=== PATIENT | female | born 1960 | race Caucasian/White ===

== ENCOUNTER 2018-05-03 07:57 | Outpatient (CLI) | payer BC ==
--- NOTE | 2018-05-05 01:23 | XRAY Report ---
Reason: OSTEOARTHRITIS,KNEE Procedure Date: 05/03/2018 Accession Number: [id number] / [id number] Procedure: XR - Knee 2 View BILAT CPT Code: FULL RESULT: EXAM: BILATERAL KNEE RADIOGRAPHY EXAM DATE: 05/03/2018 08:03 AM. CLINICAL HISTORY: OSTEOARTHRITIS,KNEE. COMPARISON: XR KNEE 3 VIEW 03/11/2010 9:44 AM. TECHNIQUE: 2 views each knee. FINDINGS: Right: Bones: Normal. No fractures or bone lesions. Joints: Moderate osteoarthritis, with joint space narrowing and marginal osteophytes. No effusion. Soft Tissues: Normal. No soft tissue swelling. Left: Bones: Normal. No fractures or bone lesions. Joints: Moderate osteoarthritis, with joint space narrowing and marginal osteophytes. Soft Tissues: Normal. No soft tissue swelling. IMPRESSION: Moderate bilateral knee osteoarthritis. Right: Kellgren Florian Grade 3. Left: Kellgren Florian Grade 3. Kellgren and Florian classification of osteoarthritis: Grade 0: no radiographic features of osteoarthritis are present Grade 1: doubtful joint space narrowing (JSN) and possible osteophytic lipping Grade 2: definite osteophytes and possible JSN on anteroposterior weight-bearing radiograph Grade 3: multiple osteophytes, definite JSN, sclerosis, possible bony deformity Grade 4: large osteophytes, marked JSN, severe sclerosis and definite bony deformity RADIA
== END 2018-05-03 07:58 | disposition home or self-care (01) ==
LOC: DI 07:57
PROVIDERS: ATTEND Nurse Practitioner
DX: M17.0 Bilateral primary osteoarthritis of knee (principal)
CPT/HCPCS: 73565

== ENCOUNTER 2018-05-20 06:59 | Outpatient (CLI) | payer BC ==
[2018-05-20 07:19] LABS: BASOPHILS % (AUTO) 0.7 %; EOSINOPHILS # (AUTO) 0.1 10^3/uL (0.0-0.7); EOSINOPHILS % (AUTO) 2.1 %; HGB - HEMOGLOBIN 13.9 g/dL (12.0-16.0); LYMPHOCYTES # (AUTO) 2.6 10^3/uL (1.5-3.5); LYMPHOCYTES % (AUTO) 39.2 %; MEAN CORPUSCULAR HEMOGLOBIN 29.3 pg (27.0-31.0); MEAN CORPUSCULAR HGB CONC 33.6 g/dL (32.0-36.0); MEAN CORPUSCULAR VOLUME 87.3 fL (81.0-99.0); MEAN PLATELET VOLUME 8.3 fL (7.9-10.8); MONOCYTES # (AUTO) 0.5 10^3/uL (0.0-1.0); NEUTROPHILS # (AUTO) 3.4 10^3/uL (1.5-6.6); PLT - PLATELET COUNT 208 10^3/uL (130-450); RED BLOOD COUNT 4.73 10^6/uL (4.20-5.40); RED CELL DISTRIBUTION WIDTH 13.9 % (12.0-15.0); WHITE BLOOD COUNT 6.7 x10^3/uL (4.8-10.8)
[2018-05-20 07:44] LABS: ALBUMIN 3.9 g/dL (3.2-5.5); ALBUMIN/GLOBULIN RATIO 1.1 (1.0-2.2); ALKALINE PHOSPHATASE 79 IU/L (42-121); ALT ALANINE AMINOTRANSFERASE 25 IU/L (10-60); AST ASPARTATE AMINOTRANSFERASE 20 IU/L (10-42); BILIRUBIN,TOTAL 0.8 mg/dL (0.2-1.0); BUN - BLOOD UREA NITROGEN 21 mg/dL (6-20); CALCIUM 8.8 mg/dL (8.5-10.3); CARBON DIOXIDE - CO2 24 mmol/L (21-32); CHLORIDE 105 mmol/L (101-111); CHOL/HDL RATIO 5.2 (<4.4); CHOLESTEROL 245 mg/dL; CREATININE 0.9 mg/dL (0.4-1.0); GFR - MDRD 64 (>89); GLUCOSE 156 mg/dL (70-100); HDL CHOLESTEROL 47 mg/dL; LDL CHOLESTEROL,CALCULATED 173 mg/dL; LDL/HDL RATIO 3.7 (<4.4); SODIUM 139 mmol/L (135-145); TOTAL PROTEIN 7.4 g/dL (6.7-8.2); VLDL CHOLESTEROL 25 mg/dL
[2018-05-20 08:24] LABS: HB2 TOTAL 15.2 g/dL; HEMOGLOBIN A1C 0.76 g/dL; HEMOGLOBIN A1C % 6.7 % (4.6-6.2)
== END 2018-05-20 07:00 | disposition home or self-care (01) ==
LOC: LAB 06:59
PROVIDERS: ATTEND Nurse Practitioner
DX: I10 Essential (primary) hypertension (principal); E78.5 Hyperlipidemia, unspecified; R73.01 Impaired fasting glucose
CPT/HCPCS: 36415; 80053; 80061; 83036; 83721; 84443; 85025

== ENCOUNTER 2018-06-09 13:17 | Outpatient (CLI) | payer BC | END 2018-06-09 13:18 | disposition home or self-care (01) | LOC: NS 13:17 | PROVIDERS: ATTEND Nurse Practitioner | DX: Z71.3 Dietary counseling and surveillance (principal); E11.9 Type 2 diabetes mellitus without complications; E66.9 Obesity, unspecified | CPT/HCPCS: 97802 ==

== ENCOUNTER 2018-09-01 06:35 | Outpatient (CLI) | payer BC ==
[2018-09-01 07:22] LABS: SODIUM 142 mmol/L (135-145)
[2018-09-01 07:23] LABS: ALBUMIN 3.8 g/dL (3.2-5.5); ALBUMIN/GLOBULIN RATIO 1.1 (1.0-2.2); ALKALINE PHOSPHATASE 76 IU/L (42-121); ALT ALANINE AMINOTRANSFERASE 27 IU/L (10-60); AST ASPARTATE AMINOTRANSFERASE 18 IU/L (10-42); BILIRUBIN,TOTAL 0.9 mg/dL (0.2-1.0); BUN - BLOOD UREA NITROGEN 21 mg/dL (6-20); CALCIUM 9.2 mg/dL (8.5-10.3); CARBON DIOXIDE - CO2 22 mmol/L (21-32); CHLORIDE 104 mmol/L (101-111); CHOLESTEROL 182 mg/dL; GFR - MDRD 57 (>89); GLUCOSE 163 mg/dL (70-100); TOTAL PROTEIN 7.4 g/dL (6.7-8.2); VLDL CHOLESTEROL 24 mg/dL
[2018-09-01 07:24] LABS: CHOL/HDL RATIO 3.4 (<4.4); HDL CHOLESTEROL 54 mg/dL; LDL CHOLESTEROL,CALCULATED 104 mg/dL; LDL/HDL RATIO 1.9 (<4.4)
[2018-09-01 08:04] LABS: HB2 TOTAL 14.7 g/dL; HEMOGLOBIN A1C 0.73 g/dL; HEMOGLOBIN A1C % 6.7 % (4.6-6.2)
== END 2018-09-01 06:36 | disposition home or self-care (01) ==
LOC: LAB 06:35
PROVIDERS: ATTEND Nurse Practitioner
DX: R73.01 Impaired fasting glucose (principal); I10 Essential (primary) hypertension; E78.5 Hyperlipidemia, unspecified
CPT/HCPCS: 36415; 80053; 80061; 83036; 83721

== ENCOUNTER 2018-11-25 06:51 | Outpatient (CLI) | payer BC ==
[2018-11-25 07:27] LABS: BASOPHILS % (AUTO) 0.4 %; EOSINOPHILS # (AUTO) 0.2 10^3/uL (0.0-0.7); EOSINOPHILS % (AUTO) 2.2 %; HGB - HEMOGLOBIN 12.8 g/dL (12.0-16.0); LYMPHOCYTES # (AUTO) 2.6 10^3/uL (1.5-3.5); LYMPHOCYTES % (AUTO) 37.9 %; MEAN CORPUSCULAR HEMOGLOBIN 29.1 pg (27.0-31.0); MEAN CORPUSCULAR HGB CONC 31.1 g/dL (32.0-36.0); MEAN CORPUSCULAR VOLUME 93.4 fL (81.0-99.0); MEAN PLATELET VOLUME 10.2 fL (7.9-10.8); MONOCYTES # (AUTO) 0.4 10^3/uL (0.0-1.0); MONOCYTES % (AUTO) 6.2 %; NEUTROPHILS # (AUTO) 3.6 10^3/uL (1.5-6.6); NEUTROPHILS % (AUTO) 52.9 %; PLT - PLATELET COUNT 200 10^3/uL (130-450); WHITE BLOOD COUNT 6.9 x10^3/uL (4.8-10.8)
[2018-11-25 07:37] LABS: PT - PROTHROMBIN TIME 11.2 secs (9.9-12.6)
[2018-11-25 07:59] LABS: % IRON SATURATION 15 % (20-50); ALBUMIN 3.8 g/dL (3.2-5.5); ALBUMIN/GLOBULIN RATIO 1.2 (1.0-2.2); ALKALINE PHOSPHATASE 75 IU/L (42-121); ALT ALANINE AMINOTRANSFERASE 17 IU/L (10-60); AST ASPARTATE AMINOTRANSFERASE 16 IU/L (10-42); BILIRUBIN,TOTAL 0.5 mg/dL (0.2-1.0); BUN - BLOOD UREA NITROGEN 19 mg/dL (6-20); CALCIUM 8.8 mg/dL (8.5-10.3); CARBON DIOXIDE - CO2 23 mmol/L (21-32); CHLORIDE 108 mmol/L (101-111); CHOL/HDL RATIO 3.3 (<4.4); CHOLESTEROL 161 mg/dL; CREATININE 0.8 mg/dL (0.4-1.0); GFR - MDRD 74 (>89); GLUCOSE 147 mg/dL (70-100); HDL CHOLESTEROL 49 mg/dL; IRON 48 ug/dL (28-170); LDL CHOLESTEROL,CALCULATED 94 mg/dL; LDL/HDL RATIO 1.9 (<4.4); SODIUM 143 mmol/L (135-145); TOTAL IRON BINDING CAPACITY 314 ug/dL (250-450); TOTAL PROTEIN 6.9 g/dL (6.7-8.2); TRANSFERRIN 224 mg/dL (192-382); VLDL CHOLESTEROL 18 mg/dL
[2018-11-25 08:11] LABS: HB2 TOTAL 13.7 g/dL; HEMOGLOBIN A1C 0.62 g/dL; HEMOGLOBIN A1C % 6.3 % (4.6-6.2)
[2018-11-25 08:25] LABS: THYROID STIMULATING HORMONE 3.61 uIU/mL (0.34-5.60)
[2018-11-25 08:32] LABS: FERRITIN 146.4 ng/mL (11.0-306.8)
[2018-11-25 08:36] LABS: FOLATE 14.46 ng/mL (5.90 - >24.8)
== END 2018-11-25 06:52 | disposition home or self-care (01) ==
LOC: LAB 06:51
PROVIDERS: ATTEND Surgery
DX: Z01.812 Encounter for preprocedural laboratory examination (principal); E46 Unspecified protein-calorie malnutrition; E63.9 Nutritional deficiency, unspecified
CPT/HCPCS: 36415; 80053; 80061; 81599; 82306; 82607; 82728; 82746; 83036; 83540; 83721; 84425; 84443; 84466; 84481; 85025; 85610; 85730

== ENCOUNTER 2018-11-27 15:40 | Outpatient (CLI) | payer BC ==
--- NOTE | 2018-11-28 10:46 | Mammography Report ---
Reason: SCREENING MAMMO Procedure Date: 11/27/2018 Accession Number: [id number] / [id number] Procedure: YOLANDE - Screening Mammo w/Natwon CPT Code: FULL RESULT: EXAM: Screening Mammo w/Antwon DATE: 11/27/2018 4:00 PM CLINICAL HISTORY: Screening encounter. TECHNIQUE: (B) - Bilateral CC, laterally exaggerated CC, MLO views were obtained. COMPARISON: None PARENCHYMAL PATTERN: (A) - The breast(s) demonstrate(s) scattered fibroglandular densities. FINDINGS: There are no suspicious masses, calcifications, or areas of distortion. IMPRESSION: Negative examination. BI-RADS category 1. RECOMMENDATION: (ANNUAL) - Recommend routine annual screening mammography. BI-RADS CATEGORY: (1) - Negative. STANDARD QUALIFYING STATEMENTS: 1. This examination was not reviewed with the aid of Computer-Aided Detection (CAD). 2. A negative or benign imaging report should not preclude biopsy if clinically suspicious findings are present. 3. Dense breasts may obscure an underlying neoplasm. 4. This examination was reviewed with the aid of 3D breast imaging (tomosynthesis).
== END 2018-11-27 15:41 | disposition home or self-care (01) ==
LOC: DI 15:40
DX: Z12.31 Encounter for screening mammogram for malignant neoplasm of breast (principal)
CPT/HCPCS: 77063; 77067

== ENCOUNTER 2018-12-15 08:06 | Day surgery (SDC) | payer BC ==
[2018-12-15] MEDS ORDERED: LACTATED RINGERS 1,000 ML IV ONE (08:31)
[2018-12-15] MEDS ORDERED: fentaNYL 250 MCG/5 ML VIAL IVP ONE (08:49)
[2018-12-15] MEDS ORDERED: MIDAZOLAM 2 MG/2 ML VIAL IVP ONE (08:49)
[2018-12-15 09:45] VITALS: BP 129/96
== END 2018-12-15 08:07 | disposition home or self-care (01) ==
LOC: SDS 08:06
PROVIDERS: ATTEND Internal Medicine Gastroenterology
PROC: 0DBP8ZZ Excision of Rectum, Via Natural or Artificial Opening Endoscopic (ICD-10-PCS; 2018-12-15)
PROC: 0DBK8ZZ Excision of Ascending Colon, Via Natural or Artificial Opening Endoscopic (ICD-10-PCS; principal; 2018-12-15 09:45)
DX: Z12.11 Encounter for screening for malignant neoplasm of colon (principal); D12.2 Benign neoplasm of ascending colon; K62.1 Rectal polyp; E11.9 Type 2 diabetes mellitus without complications; E03.9 Hypothyroidism, unspecified; I10 Essential (primary) hypertension; E78.5 Hyperlipidemia, unspecified; E66.01 Morbid (severe) obesity due to excess calories; Z68.43 Body mass index [BMI] 50.0-59.9, adult; M17.0 Bilateral primary osteoarthritis of knee; Z79.84 Long term (current) use of oral hypoglycemic drugs
CPT/HCPCS: 45380; 88305; J3010; J7120

== ENCOUNTER 2019-02-26 08:29 | Outpatient (CLI) | payer BC ==
[2019-02-26 10:01] VITALS: BP 140/90
--- NOTE | 2019-02-26 10:01 | SLEEP CARE CONSULTATION ---
Information from patient questionnaire entered by Arlen Alaniz. I have reviewed and concur with the information entered by Arlen Alaniz. This document represents the service I personally performed and the decisions made by me, Rae Zarate RN, MSN, GAS MASK INSPECTOR. History of Present Illness Reason for Visit: New patient Chief Complaint: reports: Unrefreshed sleep, Snoring, Frequent awakenings at night Duration of Symptoms: Years at least 10 or more years Usual bedtime: 9:30 pm Time it takes to fall asleep: usually 5-10 mins but can take hours about 2-3 times a month Snores at night: Yes (noted when observed by adult children when falls asleep on couch) Observed to quit breathing while asleep: No (currently single ) Number of times waking at night: 4-5 Reasons for waking at night: reports: Snoring (occasionally ), Pain, Bathroom, Other (unknown) Toss, Turn, or Twitch while sleeping: Yes Recalls having dreams: Yes (sometimes) Usually gets out of bed at: 5:40 am Feels refreshed in the morning: Yes (sometimes and other times not) Morning headache: No Sleepy or fatigued during the day: Yes (sometimes 4-5 times a month or so ) Ever fallen asleep while driving: No Takes day naps: Yes (on weekends) Dreams during day naps: No Prior sleep studies: No - Parasomnia Symptoms Ever been unable to move upon waking from sleep: No Walks in sleep: No Talks in sleep: No Ever acted out dreams in sleep: No (not as an adult) Ever felt weak in the knees when startled or emotional: No Bothered by creepy, crawly, restless sensations in legs: Yes (intermittently about weekly resolved with acetaminophen ) Problems with memory or concentration: No Subjective Initial [place] Sleepiness Scale score: 10 Past Medical History Past Medical History: reports: Hypertension (hyperlipidemia, ), Diabetes, H ypothyroidism Social History 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 Patient is and lives in [place] . Have you smoked in the past 12 months: No Alcohol use: Yes Alcohol amount and frequency: 5 drinks a week Caffeine use: Yes Caffeine amount and frequency: 1 cup Family History Family Hx Sleep Apnea: Mother: Sleep apnea - Treated (), Father: Snoring (not overweight ) Allergies and Home Medications Known drug allergies: No Home medication list reviewed: Yes Allergy and home medication list: losartan 100mg daily Atorvastatin 20mg daily Metformin 500mg twice daily levothyroxine 25mcg daily Review of Systems Weight loss over past 5 years: 20 Cardiovascular: reports: high blood pressure, palpitations (occasional - patient advised of guidelines to seek urgent care), leg or foot swelling (occasionally only since 20 pounds weight loss). denies: chest pain, irregular heart rate or pulse, have to sleep sitting up, other Respiratory: denies: shortness of breath, wheeze, sputum production, chronic cough, other Gastrointestinal: reports: diarrhea (occasionally since metformin). denies: heartburn, difficulty swallowing, nausea, vomitting, abdominal pain, other Urinary: denies: incontinence, frequency, urgency Neurological: reports: headaches (occasionally ), gait or balance problems (hip and knee pain affecting gait - under evaluation), fainting or unconsciousness (has occurred during medical procedures ). 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 denies: thyroid disease, history of goiter, sluggishness, excessive thirst, increased appetite, increased urination, unexplained weakness, other Musculoskeletal: reports: joint pain (hips and knees), back pain, muscle pain or cramping (night leg cramps less with magnesium - only a 2 times a month and much less intense). denies: neck pain, joint swelling, mobility problems, other Immunologic: denies: sneezing, rash, itching, allergies to food or environment, other Physical Exam Blood Pressure: 140/90 Cuff size: long Heart Rate: 66 O2 Saturation: 98 Height: 5 ft 7.5 in Weight: 346 lb 9.6 oz Body Mass Index: 53.4 BMI Classification: Obesity Class 3 Neck circumference: 17.5 HEENT: No craniofacial malformation Nostrils: partially obstructed Turbinates: swollen Septum: midline Mouth and throat: narrow oropharynx Soft palate: long Hard palate: normal Uvula: normal Uvula visualization: 50% Mallampati Class II Tongue: normal in size Tonsils: absent bilaterally (left) Chin and jaw: normal size and position Neck: normal w/o lymphadenopathy or thyromegaly Heart: regular rate and rhythm Lungs: clear bilaterally Abdomen: soft, non-tender, other: (large) Extremities: no edema or clubbing Neurologic: intact (grossly ) Impression and Plan 1. Suspected Obstructive Sleep Apnea-Hypopnea Syndrome, as suggested by a history of loud and irregular snoring, frequent awakening during the night, insomnia, unrefreshed sleep, and intermittent excessive daytime sleepiness. Narrow oropharynx and obesity are common predisposing factors for obstructive sleep apnea-hypopnea syndrome. Essential hypertension can be caused by untreated sleep apnea. I recommend proceeding to polysomnography to confirm the diagnosis and to assess severity. If the patient has significant sleep disordered breathing, a manual CPAP titration study will also be performed to find the optimal treatment pressure. If insurance denies a polysomnography as initial evaluation of sleep disordered breathing, a home study will be performed. I informed the patient of what the sleep studies involve and after some discussion, obtained agreement to proceed. The pathophysiology of obstructive sleep apnea-hypopnea syndrome was discussed with the patient and health risks of cardiovascular and cerebrovascular disease if not treated. AASM brochure for obstructive sleep apnea-hypopnea syndrome given and reviewed. Risks of drowsy driving discussed in detail and patient advised to avoid long distance driving and to refrigerator mover at the first sign of drowsiness. Patient agreed to plan. * Schedule polysomnography +- manual CPAP titration study * Avoid long distance driving or driving when feeling sleepy. * Avoid alcohol, sedative and muscle relaxant around bedtime. * Attempt to lose weight. * Review instructions provided by trained office staff on how to prepare for the sleep study. * Return for follow-up after sleep study completed. Time Spent with Patient (minutes): 45 I spent 100% of this visit face to face with the patient with greater than 50% of this was spent time counseling the patient and coordination of care.
== END 2019-02-26 08:30 | disposition home or self-care (01) ==
LOC: SC 08:29
PROVIDERS: ATTEND Nurse Practitioner Family
DX: G47.10 Hypersomnia, unspecified (principal); G47.8 Other sleep disorders; R06.83 Snoring; E66.9 Obesity, unspecified; Z68.43 Body mass index [BMI] 50.0-59.9, adult
CPT/HCPCS: 99204; 99212

== ENCOUNTER 2019-04-01 09:15 | Outpatient (CLI) | payer BC ==
[2019-04-01 10:24] VITALS: BP 146/90
--- NOTE | 2019-04-01 10:24 | SLEEP CARE CONSULTATION ---
Information from patient questionnaire entered by Arlen Alaniz. I have reviewed and concur with the information entered by Arlen Alaniz. This document represents the service I personally performed and the decisions made by me, Rae Zarate, RN, MSN, METAL PATTERN MAKER. History of Present Illness Initial [place] Sleepiness Scale score: 10 Current [place] Sleepiness Scale score: 9 Additional HPI information: SEGUNDO VALDOVINOS returns for follow up and results of the recently performed polysomnography. I explained the pathophysiology behind obstructive sleep apnea. We then spent quite a bit of time discussing different treatment options. For mild obstructive sleep apnea, surgery and oral appliance are alternatives to nasal CPAP therapy but in moderate or severe cases, nasal CPAP is the most effective and reliable treatment. Because apnea is primarily in supine position, then positional management therapy could be effective. Methods discussed such as positioning with pillows, using a T-shirt with tennis balls in the back, and shown commercial products that have a pillow format on back to prevent supine sleep. I reviewed the impact of weight changes on sleep apnea and strongly recommended losing weight. After some discussion, the patient opted to go with the nasal CPAP therapy. Nasal autoCPAP set at 5-16 cmH20 will be ordered with rationale explained. A manual titration study will be ordered if unable to find optimal pressure with office adjustments. I explained how CPAP machine works with sample devices [employer] Dreamstation and [employer] [id number] and what to expect when using the machine. Using CPAP every night in order to get used to it was emphasized. Patient advised to put CPAP mask on before getting into bed so as not to fall asleep without CPAP. To assist acclimation to CPAP use, it could also be used for a short time during day while reading or watching TV. The patient was instructed to call the CPAP supplier to discuss any mechanical problem that may occur. If the mask given is uncomfortable or is difficult to keep on through the night even with adjustment, contact the CPAP supplier as many will replace with another mask style if notified before 30 days. If snoring or perceives is not getting enough air or too much air from the machine, notify this office. AAS patient education PAP tips reviewed and given to patient. Patient prefers the Res Med CPAP Patient counseled not drink alcohol less than 4 hours before bedtime as it can increase snoring and apnea. Patient does not drink alcohol. Patient was cautioned about risks of drowsy driving until sleepiness symptoms resolve. Patient denies drowsy driving. AASM patient education on snoring and sleep apnea given and reviewed at last visit. Sleep Study - Results Polysomnography/Home Sleep Study results: SLEEP TIME AND EFFICIENCY: The sleep study recording began at 01:30:31 AM and ended at 08:03:57 AM. Total recording time was 393.4 minutes. The total sleep time was 363.5 minutes. The sleep efficiency was 92.4 percent. The patient spent 60.3 minutes supine, and spent 303.2 minutes non-supine. The patients own estimate of sleep time was 6.00 hours. RESPIRATORY DATA: The AHI in this report is indexed to sleep time based on actigraphy. The AASM defines this as FROYLAN. The AHI on this type 3 Home Sleep Study may understate the AHI determined on a type 1 or 2 study, since EEG is not monitored resulting in the inability to score non-desaturating hypopneas. Based on 4% Calculation: The AHI4% calculation of 25.6 per hour of recording time was based on a total of 115 scored apneas and 40 scored hypopneas with 4% desaturations. Supine AHI4%: 115.4 per hour. Non-supine AHI4%: 7.7 per hour. Oxygen Summary: Patient's baseline O2 saturation was 95.8 %. The patient spent 31.0 minutes at an oxygen saturation less than 90%, and 8.7 minutes less than 85%. The desaturation index was 9.2 events per hour sleep time. The lowest saturation was 68.6 %. SNORING: The percent of the study time spent snoring was 37.4 %. The Snoring Count was 3860 . The Snoring Index was Patient Name: Segundo Valdovinos Study Date: 03/08/2019 : 1960 Page 2 of 7 637.1 . PULSE RATE REVIEW: The mean heart rate was 70 beats per minute. The rate ranged from a low of 46 to a high of 108 beats per minute. DIAGNOSIS CODE: Moderate obstructive sleep apnea G47.33, occurring mainly during supine sleep. Moderate desaturations were noted. Allergies and Home Medications Known drug allergies: No Home medication list reviewed: Yes (no changes from initial visit ) Review of Systems Review of systems same as previous: Yes Physical Exam Blood Pressure: 146/90 (monitors occasionally - usual range ) Cuff size: long Heart Rate: 80 O2 Saturation: 96 Height: 5 ft 7.5 in Weight: 347 lb 12.8 oz Body Mass Index: 53.6 BMI Classification: Morbidly Obese Impression and Plan 1. Obstructive Sleep Apnea-Hypopnea Syndrome, moderate , with lowest oxygen saturation of 68.9% with 30 minutes below 90% and 8.7 minutes below 85%. Obviously this is the cause of the patients symptoms of unrefreshed sleep, and excessive daytime sleepiness. Positive pressure therapy could benefit her hypertension and diabetes. As mentioned above, the patient will be started on nasal autoCPAP therapy with pressure set at 5-16 cmH2O. A manual titration study will be completed if unable to find optimal treatment pressure with office adjustments. Compliance guidelines also reviewed. A copy of compliance guidelines will be given for reference at check out. Because the apnea is more severe supine, I instructed to avoid sleeping supine using pillow positioning until able to start CPAP use. * Nasal auto CPAP therapy, pressure at 5 -16 cm H2O. * Attempt to lose weight. * Avoid alcohol consumption near bedtime. * Avoid supine sleep until using CPAP. * The patient is again cautioned about driving until sleepiness completely resolves. * Return one month after CPAP obtained. I will assess response to therapy and compliance at that time. Time Spent with Patient (minutes): 40 I spent 100% of this visit face to face with the patient with greater than 50% of this was spent time counseling the patient and coordination of care.
== END 2019-04-01 09:16 | disposition home or self-care (01) ==
LOC: SC 09:15
PROVIDERS: ATTEND Nurse Practitioner Family
DX: G47.33 Obstructive sleep apnea (adult) (pediatric) (principal); E66.01 Morbid (severe) obesity due to excess calories; Z68.43 Body mass index [BMI] 50.0-59.9, adult
CPT/HCPCS: 99212; 99215

== ENCOUNTER 2020-02-24 09:34 | Outpatient (CLI) | payer BC ==
--- OUTSIDE RECORDS SUMMARY | 2020-02-24 09:37 | EXTERNAL MEDICAL SUMMARY RPT | Continuity of Care Document ---
:1960 Demographics Phone Unavailable Preferred Language Belizean Marital Status Unknown Synagogue Affiliation Unknown Race Unknown Ethnic Group Unknown Author Organization [facility] Address [address] [phone] Phone Social History date description facility [id number]
[2020-02-24 10:06] LABS: BASOPHILS % (AUTO) 0.5 %; EOSINOPHILS # (AUTO) 0.2 10^3/uL (0.0-0.7); EOSINOPHILS % (AUTO) 2.6 %; HGB - HEMOGLOBIN 11.6 g/dL (12.0-16.0); LYMPHOCYTES # (AUTO) 2.2 10^3/uL (1.5-3.5); LYMPHOCYTES % (AUTO) 33.8 %; MEAN CORPUSCULAR HEMOGLOBIN 28.2 pg (27.0-31.0); MEAN CORPUSCULAR HGB CONC 30.6 g/dL (32.0-36.0); MONOCYTES # (AUTO) 0.3 10^3/uL (0.0-1.0); MONOCYTES % (AUTO) 5.1 %; NEUTROPHILS # (AUTO) 3.8 10^3/uL (1.5-6.6); NEUTROPHILS % (AUTO) 57.8 %; PLT - PLATELET COUNT 203 10^3/uL (130-450); RED BLOOD COUNT 4.12 10^6/uL (4.20-5.40); RED CELL DISTRIBUTION WIDTH 13.6 % (12.0-15.0); WHITE BLOOD COUNT 6.6 x10^3/uL (4.8-10.8)
[2020-02-24 10:28] LABS: % IRON SATURATION 18 % (20-50); ALBUMIN 3.6 g/dL (3.2-5.5); ALBUMIN/GLOBULIN RATIO 1.2 (1.0-2.2); ALKALINE PHOSPHATASE 66 IU/L (42-121); ALT ALANINE AMINOTRANSFERASE 12 IU/L (10-60); AST ASPARTATE AMINOTRANSFERASE 12 IU/L (10-42); BILIRUBIN,TOTAL 0.7 mg/dL (0.2-1.0); BUN - BLOOD UREA NITROGEN 14 mg/dL (6-20); CALCIUM 9.2 mg/dL (8.5-10.3); CARBON DIOXIDE - CO2 27 mmol/L (21-32); CHLORIDE 106 mmol/L (101-111); CHOL/HDL RATIO 2.9 (<4.4); CHOLESTEROL 127 mg/dL; GLUCOSE 103 mg/dL (70-100); HDL CHOLESTEROL 44 mg/dL; IRON 51 ug/dL (28-170); LDL CHOLESTEROL,CALCULATED 65 mg/dL; LDL/HDL RATIO 1.5 (<4.4); SODIUM 142 mmol/L (135-145); TOTAL IRON BINDING CAPACITY 277 ug/dL (250-450); TOTAL PROTEIN 6.5 g/dL (6.7-8.2); TRANSFERRIN 198 mg/dL (192-382); VLDL CHOLESTEROL 18 mg/dL
[2020-02-24 10:42] LABS: FERRITIN 212.4 ng/mL (11.0-306.8)
[2020-02-24 12:03] LABS: HEMOGLOBIN A1c% 5.6 % (4.27-6.07)
== END 2020-02-24 09:35 | disposition home or self-care (01) ==
LOC: LAB 09:34
PROVIDERS: ATTEND Family Medicine
DX: E11.9 Type 2 diabetes mellitus without complications (principal); Z98.84 Bariatric surgery status
CPT/HCPCS: 36415; 80053; 80061; 82607; 82728; 83036; 83540; 83721; 84443; 84466; 85025

== ENCOUNTER 2020-05-23 07:19 | Outpatient (CLI) | payer BC ==
[2020-05-23 08:16] LABS: BASOPHILS % (AUTO) 0.5 %; EOSINOPHILS # (AUTO) 0.3 10^3/uL (0.0-0.7); LYMPHOCYTES # (AUTO) 2.8 10^3/uL (1.5-3.5); LYMPHOCYTES % (AUTO) 42.5 %; MEAN CORPUSCULAR HEMOGLOBIN 28.6 pg (27.0-31.0); MEAN CORPUSCULAR HGB CONC 31.7 g/dL (32.0-36.0); MEAN CORPUSCULAR VOLUME 90.1 fL (81.0-99.0); MEAN PLATELET VOLUME 10.1 fL (7.9-10.8); MONOCYTES # (AUTO) 0.3 10^3/uL (0.0-1.0); MONOCYTES % (AUTO) 5.2 %; NEUTROPHILS # (AUTO) 3.1 10^3/uL (1.5-6.6); NEUTROPHILS % (AUTO) 47.6 %; PLT - PLATELET COUNT 194 10^3/uL (130-450); RED BLOOD COUNT 4.55 10^6/uL (4.20-5.40); RED CELL DISTRIBUTION WIDTH 13.7 % (12.0-15.0); WHITE BLOOD COUNT 6.6 x10^3/uL (4.8-10.8)
[2020-05-23 08:33] LABS: % IRON SATURATION 23 % (20-50); ALBUMIN 3.9 g/dL (3.2-5.5); ALBUMIN/GLOBULIN RATIO 1.4 (1.0-2.2); ALKALINE PHOSPHATASE 60 IU/L (42-121); ALT ALANINE AMINOTRANSFERASE 15 IU/L (10-60); AST ASPARTATE AMINOTRANSFERASE 14 IU/L (10-42); BILIRUBIN,TOTAL 0.7 mg/dL (0.2-1.0); BUN - BLOOD UREA NITROGEN 23 mg/dL (6-20); CALCIUM 9.5 mg/dL (8.5-10.3); CARBON DIOXIDE - CO2 27 mmol/L (21-32); CHLORIDE 106 mmol/L (101-111); CHOLESTEROL 163 mg/dL; CREATININE 0.9 mg/dL (0.4-1.0); GFR - MDRD 64 (>89); GLUCOSE 103 mg/dL (70-100); HDL CHOLESTEROL 54 mg/dL; IRON 71 ug/dL (28-170); LDL CHOLESTEROL,CALCULATED 97 mg/dL; LDL/HDL RATIO 1.8 (<4.4); POTASSIUM 3.9 mmol/L (3.5-5.0); SODIUM 140 mmol/L (135-145); TOTAL IRON BINDING CAPACITY 311 ug/dL (250-450); TOTAL PROTEIN 6.7 g/dL (6.7-8.2); TRANSFERRIN 222 mg/dL (192-382); TRIGLYCERIDES 60 mg/dL; VLDL CHOLESTEROL 12 mg/dL
[2020-05-23 08:44] LABS: THYROID STIMULATING HORMONE 3.81 uIU/mL (0.34-5.60)
[2020-05-23 08:50] LABS: FERRITIN 184.6 ng/mL (11.0-306.8)
[2020-05-23 09:54] LABS: FOLATE 15.76 ng/mL (5.90 - >24.8)
[2020-05-23 12:00] LABS: ESTIMATED AVERAGE GLUCOSE 114 mg/dL (70-100); HEMOGLOBIN A1c% 5.6 % (4.27-6.07)
== END 2020-05-23 07:20 | disposition home or self-care (01) ==
LOC: LAB 07:19
PROVIDERS: ATTEND Surgery
DX: E11.9 Type 2 diabetes mellitus without complications (principal); E44.1 Mild protein-calorie malnutrition; E55.9 Vitamin D deficiency, unspecified; Z98.84 Bariatric surgery status
CPT/HCPCS: 36415; 80053; 80061; 82306; 82607; 82728; 82746; 83036; 83540; 83721; 84425; 84443; 84466; 85025

== ENCOUNTER 2020-08-11 09:09 | Outpatient (CLI) | payer BC ==
--- NOTE | 2020-08-11 16:56 | XRAY Report ---
PROCEDURE: Wrist 3 View LT INDICATIONS: NERVE ENTRAPMENT, LEFT TECHNIQUE: 3 views of the wrist were acquired. COMPARISON: None. FINDINGS: Bones: No fractures or dislocations. There is mild radiocarpal joint space narrowing. No suspicious bony lesions. Soft tissues: No suspicious soft tissue calcifications. IMPRESSION: 1. Mild radiocarpal joint space narrowing. Reviewed by: Eddy Durand MD on 08/11/2020 4:55 PM PDT Approved by: Eddy Durand MD on 08/11/2020 4:55 PM PDT Station ID: [id number]
--- NOTE | 2020-08-11 17:24 | XRAY Report ---
PROCEDURE: Elbow 2 View LT INDICATIONS: NERVE ENTRAPMENT, LEFT TECHNIQUE: 2 views of the elbow were acquired. COMPARISON: None FINDINGS: Bones: No fractures or dislocations. No suspicious bony lesions. Soft tissues: No elbow joint effusion. No suspicious soft tissue calcifications. IMPRESSION: No evidence of bony abnormality of the left elbow. No degenerative changes. Comment: Consider MRI if suspect atypical nerve entrapment. Reviewed by: Henok Clemens MD on 08/11/2020 4:23 PM ANGE Approved by: Henok Clemens MD on 08/11/2020 4:23 PM ANGE Station ID: [id number]
== END 2020-08-11 09:10 | disposition home or self-care (01) ==
LOC: DI.N 09:09
PROVIDERS: ATTEND Physician Assistant
DX: G56.22 Lesion of ulnar nerve, left upper limb (principal)

== ENCOUNTER 2020-08-29 11:57 | Outpatient (CLI) | payer BC ==
--- NOTE | 2020-08-29 13:22 | XRAY Report ---
PROCEDURE: Cervical Spine Complete INDICATIONS: ULNAR NERVE ENTRAPMENT, LEFT TECHNIQUE: 5 view(s) of the cervical spine were acquired. COMPARISON: None. FINDINGS: Bones: No fractures or dislocations to the C7-T1 level. The lateral masses of C1 appear intact on t he odontoid view. No suspicious bony lesions. Anterior fusion is present at C6-7. There are slight overall reversal cervical curvature. Multilevel mild to moderate disc space narrowing is present most notable at C5-6 and C7-T1. Multilevel uncovertebral hypertrophy is present. There is multilevel mode rate to severe right foraminal narrowing most notable at C5-6 and C6-7, with foraminal narrowing most prominent at C5-6 on the right. Soft tissues: No prevertebral soft tissue swelling. IMPRESSION: Multilevel degenerative changes as well as postsurgical fusion as above. Reviewed by: Em Bowen MD on 08/29/2020 1:21 PM PDT Approved by: Em Bowen MD on 08/29/2020 1:21 PM PDT Station ID: [id number]
== END 2020-08-29 23:59 | disposition home or self-care (01) ==
LOC: DI.N 11:57
PROVIDERS: ATTEND Orthopaedic Surgery
DX: M47.812 Spondylosis without myelopathy or radiculopathy, cervical region (principal); Z98.1 Arthrodesis status

== ENCOUNTER 2020-09-15 07:13 | Outpatient (CLI) | payer BC ==
--- NOTE | 2020-09-15 11:23 | MRI Report ---
PROCEDURE: Wrist LT W/O INDICATIONS: ULNAR NERVE ENTRAPMENT TECHNIQUE: Noncontrast coronal proton density fast spin echo and T2 fast spin echo with fat saturation; coronal 3-D gradient echo, axial T1 spin echo and T2 fast spin echo with fat saturation, sagittal T1 spin ech o through the wrist. COMPARISON: Left wrist radiographs 08/11/2020 FINDINGS: Image quality: Excellent. Bones and cartilage: The carpal bones are normally aligned. No bone marrow contusions or fractures. No evidence for avascular necrosis. Mild degenerative changes are seen at the radial scaphoid, vannesa caphe joint, first carpometacarpal joints. A type II lunate is seen. Carpal ligaments: The scapholunate and lunotriquetral ligaments appear intact. On sagittal images, the pisohamate ligament appears intact. Triangular fibrocartilage complex: There is a large defect in the central triangular fibrocartilage d isc, which may be degenerative. Tendons and soft tissues: The carpal tunnel structures appear normal, including the median nerve. T he ulnar nerve appears normal within Guyon?s canal. There is tenosynovitis of the extensor carpi uln silvino tendon with possible overlying soft tissue edema. The remaining extensor tendon compartments dem onstrate normal morphology, without pathologic tendon sheath fluid. A lobular ganglion cyst is seen a t the volar radial aspect of the wrist measuring approximately 1.1 x 0.4 x 1.1 cm. Small 0.2 mm gangl ion cyst volar to the third and fourth carpometacarpal bases. IMPRESSION: 1. The ulnar nerve is normal in appearance when compared Guyon's canal without a compressive mass vi sualized. 2. Moderate extensor carpi ulnaris tenosynovitis. 3. Large defect in the central target fibrocartilage disc may be the degenerative. 4. Mild degenerative changes at the radial aspect of the wrist. 5. Small ganglion cysts, measuring 1.1 cm at the volar radial aspect of the wrist and 0.2 cm volar t o the third carpometacarpal joint. Reviewed by: Vasu Gomez MD on 09/15/2020 11:22 AM PDT Approved by: Vasu Gomez MD on 09/15/2020 11:22 AM PDT Station ID: [id number]
== END 2020-09-15 07:14 | disposition home or self-care (01) ==
LOC: DI 07:13
PROVIDERS: ATTEND Orthopaedic Surgery
DX: M65.832 Other synovitis and tenosynovitis, left forearm (principal); M19.032 Primary osteoarthritis, left wrist; M67.432 Ganglion, left wrist

== ENCOUNTER 2021-01-04 07:03 | Outpatient (CLI) | payer BC ==
[2021-01-04 07:51] LABS: BASOPHILS % (AUTO) 0.6 %; EOSINOPHILS # (AUTO) 0.2 10^3/uL (0.0-0.7); EOSINOPHILS % (AUTO) 2.6 %; HCT - HEMATOCRIT 39.8 % (37.0-47.0); HGB - HEMOGLOBIN 12.8 g/dL (12.0-16.0); LYMPHOCYTES # (AUTO) 3.1 10^3/uL (1.5-3.5); LYMPHOCYTES % (AUTO) 47.1 %; MEAN CORPUSCULAR HEMOGLOBIN 29.7 pg (27.0-31.0); MEAN CORPUSCULAR HGB CONC 32.2 g/dL (32.0-36.0); MEAN CORPUSCULAR VOLUME 92.3 fL (81.0-99.0); MEAN PLATELET VOLUME 9.8 fL (7.9-10.8); MONOCYTES # (AUTO) 0.4 10^3/uL (0.0-1.0); MONOCYTES % (AUTO) 6.6 %; NEUTROPHILS # (AUTO) 2.8 10^3/uL (1.5-6.6); NEUTROPHILS % (AUTO) 42.9 %; PLT - PLATELET COUNT 206 10^3/uL (130-450); RED BLOOD COUNT 4.31 10^6/uL (4.20-5.40); RED CELL DISTRIBUTION WIDTH 13.4 % (12.0-15.0); WHITE BLOOD COUNT 6.5 x10^3/uL (4.8-10.8)
[2021-01-04 07:59] LABS: % IRON SATURATION 25 % (20-50); ALBUMIN 4.1 g/dL (3.2-5.5); ALBUMIN/GLOBULIN RATIO 1.6 (1.0-2.2); ALKALINE PHOSPHATASE 51 IU/L (42-121); ALT ALANINE AMINOTRANSFERASE 21 IU/L (10-60); AST ASPARTATE AMINOTRANSFERASE 18 IU/L (10-42); BILIRUBIN,TOTAL 0.7 mg/dL (0.2-1.0); BUN - BLOOD UREA NITROGEN 21 mg/dL (6-20); CALCIUM 9.2 mg/dL (8.5-10.3); CARBON DIOXIDE - CO2 27 mmol/L (21-32); CHLORIDE 106 mmol/L (101-111); CHOL/HDL RATIO 3.3 (<4.4); CHOLESTEROL 174 mg/dL; GFR - MDRD 57 (>89); GLUCOSE 96 mg/dL (70-100); HDL CHOLESTEROL 52 mg/dL; IRON 69 ug/dL (28-170); LDL CHOLESTEROL,CALCULATED 111 mg/dL; LDL/HDL RATIO 2.1 (<4.4); POTASSIUM 3.8 mmol/L (3.5-5.0); SODIUM 141 mmol/L (135-145); TOTAL IRON BINDING CAPACITY 273 ug/dL (250-450); TOTAL PROTEIN 6.7 g/dL (6.7-8.2); TRANSFERRIN 195 mg/dL (192-382); TRIGLYCERIDES 57 mg/dL; VLDL CHOLESTEROL 11 mg/dL
[2021-01-04 08:08] LABS: THYROID STIMULATING HORMONE 2.61 uIU/mL (0.34-5.60)
[2021-01-04 08:13] LABS: FERRITIN 200.2 ng/mL (11.0-306.8)
[2021-01-04 08:20] LABS: FOLATE 17.96 ng/mL (5.90 - >24.8)
[2021-01-04 09:41] LABS: ESTIMATED AVERAGE GLUCOSE 100 mg/dL (70-100); HEMOGLOBIN A1c% 5.1 % (4.27-6.07)
== END 2021-01-04 07:04 | disposition home or self-care (01) ==
LOC: LAB 07:03
PROVIDERS: ATTEND Surgery
DX: E63.9 Nutritional deficiency, unspecified (principal); K90.9 Intestinal malabsorption, unspecified; Z98.84 Bariatric surgery status
CPT/HCPCS: 36415; 80053; 80061; 82306; 82607; 82728; 82746; 83036; 83540; 83721; 84425; 84443; 84466; 85025

== ENCOUNTER 2022-01-08 16:43 | Outpatient (CLI) | payer BC ==
--- NOTE | 2022-01-09 13:06 | XRAY Report ---
PROCEDURE: Wrist 3 View LT INDICATIONS: SPRAIN OF METACARPOHALANGEAL JOINT OF LEFT INDEX TECHNIQUE: 3 views of the wrist were acquired. COMPARISON: 08/11/2020 FINDINGS: Bones: No fractures or dislocations. Stable, mild radiocarpal joint space narrowing. No suspicious b madeline lesions. Soft tissues: No suspicious soft tissue calcifications. IMPRESSION: Intact left wrist with mild radiocarpal joint space narrowing. Reviewed by: Maria Elena Augustin MD on 01/09/2022 1:05 PM PST Approved by: Maria Elena Augustin MD on 01/09/2022 1:05 PM PST Station ID: [id number]
== END 2022-01-08 16:44 | disposition home or self-care (01) ==
LOC: DI 16:43
PROVIDERS: ATTEND Family Medicine
DX: S63.651A Sprain of metacarpophalangeal joint of left index finger, initial encounter (principal); M25.832 Other specified joint disorders, left wrist

== ENCOUNTER 2022-01-30 13:47 | Outpatient (CLI) | payer BC ==
--- NOTE | 2022-01-30 13:14 | XRAY Report ---
PROCEDURE: Hand 3 View LT INDICATIONS: LEFT HAND PAIN TECHNIQUE: 3 views of the hand(s) acquired. COMPARISON: Correlation is made with prior left wrist plain films, 01/08/2022 FINDINGS: Bones: No fractures or dislocations. No suspicious bony lesions. Degenerative changes are seen thr oughout, which are worst along the radial aspect of the carpus. Soft tissues: No suspicious soft tissue calcifications. IMPRESSION: Age-appropriate osteoarthritic degenerative changes are again seen by plain film. Reviewed by: Chad Brandon MD on 01/30/2022 12:13 PM [place] Approved by: Chad Brandon MD on 01/30/2022 12:13 PM [facility] Station ID: [id number]
== END 2022-01-30 13:49 | disposition home or self-care (01) ==
LOC: DI.WOS 13:47
PROVIDERS: ATTEND Physician Assistant Surgical
DX: M19.042 Primary osteoarthritis, left hand (principal)

== ENCOUNTER 2022-02-17 08:38 | Outpatient (CLI) | payer BC ==
[2022-02-17 08:58] LABS: BASOPHILS % (AUTO) 0.8 %; EOSINOPHILS # (AUTO) 0.2 10^3/uL (0.0-0.7); EOSINOPHILS % (AUTO) 3.2 %; HCT - HEMATOCRIT 41.1 % (37.0-47.0); HGB - HEMOGLOBIN 12.9 g/dL (12.0-16.0); LYMPHOCYTES # (AUTO) 2.3 10^3/uL (1.5-3.5); LYMPHOCYTES % (AUTO) 42.9 %; MEAN CORPUSCULAR HEMOGLOBIN 29.3 pg (27.0-31.0); MEAN CORPUSCULAR HGB CONC 31.4 g/dL (32.0-36.0); MEAN CORPUSCULAR VOLUME 93.4 fL (81.0-99.0); MEAN PLATELET VOLUME 9.3 fL (7.9-10.8); MONOCYTES # (AUTO) 0.5 10^3/uL (0.0-1.0); MONOCYTES % (AUTO) 8.7 %; NEUTROPHILS # (AUTO) 2.3 10^3/uL (1.5-6.6); NEUTROPHILS % (AUTO) 44.2 %; PLT - PLATELET COUNT 183 10^3/uL (130-450); RED CELL DISTRIBUTION WIDTH 13.2 % (12.0-15.0); WHITE BLOOD COUNT 5.3 x10^3/uL (4.8-10.8)
[2022-02-17 09:15] LABS: ALBUMIN/GLOBULIN RATIO 1.3 (1.0-2.2); ALKALINE PHOSPHATASE 65 IU/L (42-121); ALT ALANINE AMINOTRANSFERASE 15 IU/L (10-60); AST ASPARTATE AMINOTRANSFERASE 20 IU/L (10-42); BILIRUBIN,TOTAL 0.8 mg/dL (0.2-1.0); BUN - BLOOD UREA NITROGEN 18 mg/dL (6-20); CALCIUM 9.2 mg/dL (8.5-10.3); CARBON DIOXIDE - CO2 27 mmol/L (21-32); CHLORIDE 106 mmol/L (101-111); CHOL/HDL RATIO 2.2 (<4.4); CHOLESTEROL 168 mg/dL; CREATININE 0.8 mg/dL (0.4-1.0); GFR - MDRD 73 (>89); GLUCOSE 98 mg/dL (70-100); HDL CHOLESTEROL 77 mg/dL; LDL CHOLESTEROL,CALCULATED 77 mg/dL; POTASSIUM 3.7 mmol/L (3.5-5.0); SODIUM 141 mmol/L (135-145); TRIGLYCERIDES 70 mg/dL; VLDL CHOLESTEROL 14 mg/dL
[2022-02-17 09:27] LABS: THYROID STIMULATING HORMONE 3.45 uIU/mL (0.34-5.60)
[2022-02-17 13:03] LABS: ESTIMATED AVERAGE GLUCOSE 105 mg/dL (70-100); HEMOGLOBIN A1c% 5.3 % (4.27-6.07)
[2022-02-20 16:28] LABS: CREATININE,URINE 103.7 mg/dL; MICROALBUM/CREATININE RATIO,UR 5.8 ug/mg (<30.0); MICROALBUMIN,URINE 0.6 mg/dL (0-300.0)
== END 2022-02-17 08:39 | disposition home or self-care (01) ==
LOC: LAB 08:38
PROVIDERS: ATTEND Physician Assistant
DX: E11.9 Type 2 diabetes mellitus without complications (principal); E78.5 Hyperlipidemia, unspecified; E03.9 Hypothyroidism, unspecified
CPT/HCPCS: 36415; 80053; 80061; 82043; 82570; 83036; 83721; 84443; 85025

== ENCOUNTER 2022-11-14 07:12 | Outpatient (CLI) | payer BC ==
[2022-11-14 07:50] LABS: ALBUMIN/GLOBULIN RATIO 1.7 (1.0-2.2); ALKALINE PHOSPHATASE 73 IU/L (42-121); ALT ALANINE AMINOTRANSFERASE 12 IU/L (10-60); AST ASPARTATE AMINOTRANSFERASE 15 IU/L (10-42); BILIRUBIN,TOTAL 0.7 mg/dL (0.2-1.0); BUN - BLOOD UREA NITROGEN 22 mg/dL (6-20); CALCIUM 9.4 mg/dL (8.5-10.3); CARBON DIOXIDE - CO2 30 mmol/L (21-32); CHLORIDE 108 mmol/L (101-111); CHOL/HDL RATIO 2.5 (<4.4); CHOLESTEROL 177 mg/dL; CREATININE 0.9 mg/dL (0.6-1.3); GFR - MDRD 63 (>89); GLUCOSE 96 mg/dL (74-104); HDL CHOLESTEROL 72 mg/dL; LDL CHOLESTEROL,CALCULATED 88 mg/dL; LDL/HDL RATIO 1.2 (<4.4); SODIUM 142 mmol/L (135-145); TOTAL PROTEIN 6.4 g/dL (6.4-8.9); TRIGLYCERIDES 84 mg/dL (48-352); VLDL CHOLESTEROL 17 mg/dL
[2022-11-14 08:01] LABS: THYROID STIMULATING HORMONE 4.28 uIU/mL (0.34-5.60)
[2022-11-14 08:25] LABS: BASOPHILS % (AUTO) 0.5 %; EOSINOPHILS # (AUTO) 0.1 10^3/uL (0.0-0.7); EOSINOPHILS % (AUTO) 3.1 %; HCT - HEMATOCRIT 40.2 % (37.0-47.0); HGB - HEMOGLOBIN 12.9 g/dL (12.0-16.0); LYMPHOCYTES # (AUTO) 1.4 10^3/uL (1.5-3.5); MEAN CORPUSCULAR HEMOGLOBIN 30.3 pg (27.0-31.0); MEAN CORPUSCULAR HGB CONC 32.1 g/dL (32.0-36.0); MEAN CORPUSCULAR VOLUME 94.4 fL (81.0-99.0); MONOCYTES # (AUTO) 0.3 10^3/uL (0.0-1.0); NEUTROPHILS # (AUTO) 2.3 10^3/uL (1.5-6.6); NEUTROPHILS % (AUTO) 55.9 %; PLT - PLATELET COUNT 181 10^3/uL (130-450); RED BLOOD COUNT 4.26 10^6/uL (4.20-5.40); RED CELL DISTRIBUTION WIDTH 12.9 % (12.0-15.0); WHITE BLOOD COUNT 4.2 x10^3/uL (4.8-10.8)
[2022-11-14 12:54] LABS: ESTIMATED AVERAGE GLUCOSE 103 mg/dL (70-100); HEMOGLOBIN A1c% 5.2 % (4.27-6.07)
== END 2022-11-14 07:13 | disposition home or self-care (01) ==
LOC: LAB 07:12
PROVIDERS: ATTEND Physician Assistant
DX: E11.9 Type 2 diabetes mellitus without complications (principal); E78.5 Hyperlipidemia, unspecified; E03.9 Hypothyroidism, unspecified
CPT/HCPCS: 36415; 80053; 80061; 83036; 83721; 84443; 85025

== ENCOUNTER 2022-12-04 13:33 | Outpatient (CLI) | payer BC ==
--- NOTE | 2022-12-05 11:44 | Mammography Report ---
BILATERAL DIGITAL SCREENING MAMMOGRAM 3D/2D: 12/04/2022 CLINICAL: Routine screening. Comparison is made to exams dated: 11/27/2018 mammogram and 12/24/2014 mammogram - [facility]. Both breasts are heterogeneously dense, which may obscure small masses (category c / 51-75% glandular tissue). No significant masses, calcifications, or other findings are seen in either breast. There has been no significant interval change. IMPRESSION: NEGATIVE There is no mammographic evidence of malignancy. A 1 year screening mammogram is recommended. Based on the Tyrer Cuzick model (a risk assessment model) the patients lifetime risk is 15.1% and he r 10 year risk is 6.7%. According to the ACR, ACS, and NCCN guidelines, an annual breast MRI exam ander ng with mammogram is recommended if the patients lifetime risk is 20% or greater. This exam was interpreted at Station ID: [id number]. NOTE: For mammograms, a report in lay terms will be sent to the patient. Approximately 15% of breast malignancies will not be visualized mammographically. In the management of a palpable breast mass, a negative mammogram must not discourage biopsy of a clinically suspicious lesion. Electronically Signed By: Mauricio vicente/gracie:12/04/2022 17:34:40 letter sent: No_Letter ACR BI-RADS Category 1: Negative 3341F PARENCHYMAL PATTERN: (D) - The breast(s) demonstrate(s) heterogeneously dense fibroglandular cielo chapman. BI-RADS CATEGORY: (1) - 1 Mammogram [id number] 1 year screening LATERALITY: (B)
== END 2022-12-04 13:34 | disposition home or self-care (01) ==
LOC: DI 13:33
DX: Z12.31 Encounter for screening mammogram for malignant neoplasm of breast (principal); R92.333 Mammographic heterogeneous density, bilateral breasts

== ENCOUNTER 2023-02-20 12:21 | Outpatient (CLI) | payer BC | END 2023-02-20 12:22 | disposition home or self-care (01) | LOC: DI 12:21 | PROVIDERS: ATTEND Physician Assistant | DX: I11.9 Hypertensive heart disease without heart failure (principal) | CPT/HCPCS: 93306 ==

== ENCOUNTER 2023-09-16 07:05 | Outpatient (CLI) | payer BC ==
--- NOTE | 2023-09-16 15:28 | Ultrasound Report ---
PROCEDURE: Soft Tissue Head or Neck INDICATIONS: ADENOPATHY TECHNIQUE: Limited ultrasound of the region of interest of the right neck palpable abnormality. COMPARISON: None FINDINGS/IMPRESSION: Limited ultrasound of the region of interest of the right neck shows an approximately 6 x 7 x 4 mm ly mph node with expected echogenic hilum. Reviewed by: Sarath Dennis MD on 09/16/2023 3:27 PM PDT Approved by: Sarath Dennis MD on 09/16/2023 3:27 PM PDT Station ID: [id number]
== END 2023-09-16 07:06 | disposition home or self-care (01) ==
LOC: DI 07:05
PROVIDERS: ATTEND Physician Assistant
DX: R59.9 Enlarged lymph nodes, unspecified (principal)

== ENCOUNTER 2023-10-03 06:53 | Outpatient (CLI) | payer BC ==
[2023-10-03 07:26] LABS: ALBUMIN 3.9 g/dL (3.2-5.5); ALBUMIN/GLOBULIN RATIO 1.4 (1.0-2.2); ALKALINE PHOSPHATASE 65 IU/L (42-121); ALT ALANINE AMINOTRANSFERASE 12 IU/L (10-60); AST ASPARTATE AMINOTRANSFERASE 14 IU/L (10-42); BILIRUBIN,TOTAL 0.5 mg/dL (0.2-1.0); BUN - BLOOD UREA NITROGEN 22 mg/dL (6-20); CALCIUM 9.3 mg/dL (8.5-10.3); CARBON DIOXIDE - CO2 30 mmol/L (21-32); CHLORIDE 110 mmol/L (101-111); CHOL/HDL RATIO 2.1 (<4.4); CHOLESTEROL 162 mg/dL; CREATININE 0.9 mg/dL (0.6-1.3); GFR - MDRD 63 (>89); GLUCOSE 102 mg/dL (74-104); HDL CHOLESTEROL 78 mg/dL; LDL CHOLESTEROL,CALCULATED 71 mg/dL; LDL/HDL RATIO 0.9 (<4.4); POTASSIUM 4.2 mmol/L (3.5-4.5); SODIUM 144 mmol/L (135-145); TOTAL PROTEIN 6.7 g/dL (6.4-8.9); TRIGLYCERIDES 65 mg/dL; VLDL CHOLESTEROL 13 mg/dL
[2023-10-03 07:31] LABS: BASOPHILS % (AUTO) 0.6 %; EOSINOPHILS # (AUTO) 0.1 10^3/uL (0.0-0.7); EOSINOPHILS % (AUTO) 2.7 %; HCT - HEMATOCRIT 40.7 % (37.0-47.0); HGB - HEMOGLOBIN 13.1 g/dL (12.0-16.0); LYMPHOCYTES # (AUTO) 1.6 10^3/uL (1.5-3.5); LYMPHOCYTES % (AUTO) 33.2 %; MEAN CORPUSCULAR HEMOGLOBIN 30.8 pg (27.0-31.0); MEAN CORPUSCULAR HGB CONC 32.2 g/dL (32.0-36.0); MEAN CORPUSCULAR VOLUME 95.5 fL (81.0-99.0); MEAN PLATELET VOLUME 9.7 fL (7.9-10.8); MONOCYTES # (AUTO) 0.3 10^3/uL (0.0-1.0); MONOCYTES % (AUTO) 7.1 %; NEUTROPHILS # (AUTO) 2.7 10^3/uL (1.5-6.6); PLT - PLATELET COUNT 206 10^3/uL (130-450); RED BLOOD COUNT 4.26 10^6/uL (4.20-5.40); RED CELL DISTRIBUTION WIDTH 12.7 % (12.0-15.0); WHITE BLOOD COUNT 4.8 x10^3/uL (4.8-10.8)
[2023-10-03 07:42] LABS: THYROID STIMULATING HORMONE 2.96 uIU/mL (0.34-5.60)
[2023-10-03 10:04] LABS: ESTIMATED AVERAGE GLUCOSE 105 mg/dL (70-100); HEMOGLOBIN A1c% 5.3 % (4.27-6.07)
[2023-10-03 16:54] LABS: CREATININE,URINE 134.2 mg/dL; MICROALBUM/CREATININE RATIO,UR 6.7 ug/mg (<30.0); MICROALBUMIN,URINE 0.9 mg/dL
== END 2023-10-03 06:54 | disposition home or self-care (01) ==
LOC: LAB 06:53
PROVIDERS: ATTEND Physician Assistant
DX: E11.9 Type 2 diabetes mellitus without complications (principal); E78.5 Hyperlipidemia, unspecified; I10 Essential (primary) hypertension
CPT/HCPCS: 36415; 80053; 80061; 82043; 82570; 83036; 83721; 84443; 85025